=== PATIENT | female | born 1965 | race Two or more races ===

== ENCOUNTER 2023-01-30 13:42 | Emergency (ER) | payer MEDICAID ==
[2023-01-30] MEDS ORDERED: IBUP-1456 PO (19:28)
== END 2023-01-30 15:22 | disposition left against medical advice (07) ==
LOC: ER 13:42
DX: M25.512 Pain in left shoulder (principal); Z53.21 Procedure and treatment not carried out due to patient leaving prior to being seen by health care provider

== ENCOUNTER 2023-01-30 17:27 | Emergency (ER) | payer MEDICAID ==
[~2023-01-30] VITALS: Ht 177.8 cm; Wt 82.2 kg
[2023-01-30 18:28] VITALS: BP 105/86; PULSE 67; RESP 20; TEMP 97.5; O2SAT 97
[2023-01-30] MEDS ORDERED: IBUP-1456 PO (19:28)
[2023-01-30] MEDS ORDERED: KETOROLAC TROMETH 60MG/2ML VIAL IM ONE (19:30)
== END 2023-01-30 19:38 | disposition home or self-care (01) ==
LOC: ER 17:27
DX: S46.912A Strain of unspecified muscle, fascia and tendon at shoulder and upper arm level, left arm, initial encounter (principal); Z79.1 Long term (current) use of non-steroidal anti-inflammatories (NSAID); X58.XXXA Exposure to other specified factors, initial encounter; Y93.89 Activity, other specified; Y92.89 Other specified places as the place of occurrence of the external cause; Y99.8 Other external cause status
CPT/HCPCS: 73030; 96372; 99283; J1885

== ENCOUNTER 2024-10-09 20:33 | Emergency (ER) | payer MEDICAID ==
[~2024-10-09] VITALS: Ht 177.8 cm; Wt 88.6 kg
[~2024-10-09 20:33] MED LIST: IBUP-1456 PO
--- NOTE | 2024-10-09 20:55 | ED.PDOC ---
HPI Comments HPI: Past Medical history: Denies Past Surgical history: Denies Family History: Noncontributory Medications: denies Allergies: NDKA Social History: denies ETOH, denies tobacco use, denies drug use Initial vitals: BP: HR: 65 RR: O2 Sat.: Temp.: HPI: Poor Historian. 59-year-old female presents to emergency department for evaluation of left-sided chest pain radiating to the left upper extremity constant with the associated shortness of breath. Onset of symptoms happened approximately an hour prior to my evaluation. No alleviating or precipitating factors. Patient states that this is unusual for her. Denies any family history of coronary artery disease. Denies any tobacco abuse. REVIEW OF SYSTEMS: CONSTITUTIONAL: Denies acute: fever, diaphoresis, chills, generalized weakness. HEAD: Denies acute: headache, photophobia Eyes: Denies acute: Double vision, vision loss, eye pain, eye discharge. EARS: Denies acute: tinnitus, hearing loss, ear discharge, ear pain, THROAT: Denies acute: sore throat, swelling, difficulty swallowing , pain with swallowing, change in voice. NECK: Denies acute: neck pain, neck swelling, stiff neck. HEART: Denies acute : palpitations, LUNGS: Denies acute: wheezing, cough, hemoptysis ABDOMEN: Denies acute: abdominal pain, Nausea, Vomiting, diarrhea, melena , hematemesis, hematochezia SKIN: Denies acute: rash, redness, lesions, itchiness. EXTREMITIES: Denies acute: calf pain, numbness, tingling, weakness, denies pain in extremity. Denies acute: Low back pain. Neuro: Denies acute: focal neurological deficit, motor or sensory focal neurological deficit, tremors, seizure like activity, confusion, dizziness, change in mental status, loss of bowel or bladder function, cauda equina like symptoms. : Denies acute: dysuria, hematuria, flank pain, increase in urinary frequency. PSYCH: Denies acute: hallucination, suicidal ideation, homicidal ideation. FEMALE: Denies acute: abnormal vaginal bleeding, foul odor, unusual discharge. PHYSICAL EXAM: General: ----wizf-rr-drojjogw----acute distress, awake and alert. Head: normocephalic, atraumatic. Neck: supple, trachea is midline, no swelling. Throat: Normal phonation. Eyes:, no erythema, no purulent discharge, no proptosis, no icterus. Heart: regular rate, regular rhythm, no significant murmur appreciated. Lungs: no apparent respiratory distress, Able to speak in full sentences. No wheezing, no rhonchi, no crackles. No stridors Clear to auscultation bilaterally. Abdomen: non tender to palpation, non distended, soft, no guarding, no rebound, + bowel sounds. Neuro: Awake, Alert, oriented to name, self, situation, follows commands GCS=15. Speech is normal. Skin: no petechia, no purpura, no cyanosis, non-pale, not jaundice. Lower extremities: --no - Pitting edema no deformity, no focal swelling, no calf TTP. Makes eye contact. moves all four extremities. Face: no apparent facial droop. Ambulating in the ED independently. ED COURSE: Chief Complaint: Chest Pain Time Seen by MD: 20:53 Primary Care Provider: UNKNOWN Reviewed Notes: Medications, Allergies Allergies: Coded Allergies: No Known Drug Allergy (Verified Allergy, Unknown, 01/30/23) Home Meds Active Scripts Ibuprofen (Ibuprofen) 800 Mg Tab, 1 TAB PO TID PRN, #30 TAB 0 Refills Prov:ROBBIN CORRALES 01/30/23 Information Source: Patient Mode of Arrival: Ambulatory Was a procedure done? Was a procedure done?: No CP Differential Dx Differential Diagnosis: N/A Differential Diagnosis: Other (Ddx include but not limitied to gastritis, musculoskeletal pain, radiculopathy, atypical chest pain, dissection, aneurysm, ACS, unstable angina, hiatal hernia, GERD, anxiety, costochondritis, PE, pneumothroax, neoplasm, cardiac ischemia, drug abuse, anemia.) X-Ray, Labs, Meds, VS Vital Signs Date Time Temp Pulse Resp B/P (MAP) Pulse Ox O2 Delivery O2 Flow Rate FiO2 10/09/24 23:59 112/76 10/09/24 23:52 66 16 98 Room Air* 0 21 10/09/24 23:52 98.3 66 16 112/76 (88) 98 98.3 10/09/24 23:43 60 10/09/24 22:04 62 10/09/24 20:51 98.4 65 20 113/75 (88) 98 98.4 10/09/24 20:41 65 Lab Test 10/09/24 21:33 10/09/24 20:53 10/09/24 10:03 Range/Units Troponin I High Sensitivity 3 L < 3 L </=34 ng/L White Blood Count 7.1 4.4-10.8 10^3/uL Red Blood Count 4.92 4.0-5.20 10^6/uL Hemoglobin 13.1 12.2-16.2 g/dL Hematocrit 40.3 36.0-46.0 % Mean Corpuscular Volume 81.8 80.0-100.0 fL Mean Corpuscular Hemoglobin 26.7 L 28.0-32.0 pg Mean Corpuscular Hemoglobin Concent 32.7 32.0-36.0 g/dL Red Cell Distribution Width 14.6 H 11.8-14.3 % Platelet Count 272 140-450 10^3/uL Mean Platelet Volume 6.8 L 6.9-10.8 fL Neutrophils (%) (Auto) 53.2 37.0-80.0 % Lymphocytes (%) (Auto) 37.5 10.0-50.0 % Monocytes (%) (Auto) 6.6 0.0-12.0 % Eosinophils (%) (Auto) 2.0 0.0-7.0 % Basophils (%) (Auto) 0.7 0.0-2.0 % Neutrophils # (Auto) 3.8 1.6-8.6 10 ^3/uL Lymphocytes # (Auto) 2.7 0.4-5.4 10 ^3/uL Monocytes # (Auto) 0.5 0-1.3 10 ^3/uL Eosinophils # (Auto) 0.1 0-0.8 10 ^3/uL Basophils # (Auto) 0 0-0.2 10 ^3/uL Nucleated Red Blood Cells 0.0 % Sodium Level 142 136-145 mmol/L Potassium Level 4.1 3.5-5.1 mmol/L Chloride Level 110 H 98-107 mmol/L Carbon Dioxide Level 25 20-31 mmol/L Anion Gap 7 5-15 Blood Urea Nitrogen 16 9-23 mg/dL Creatinine 0.82 0.550-1.02 mg/dL Glomerular Filtration Rate Calc 82 >90 mL/min BUN/Creatinine Ratio 19.5 10.0-20.0 Serum Glucose 90 74-106 mg/dL Lactic Acid Level 0.8 0.4-2.0 mmol/L Calcium Level 9.8 8.7-10.4 mg/dL Total Bilirubin 0.3 0.2-1.0 mg/dL Aspartate Amino Transferase (AST) 18 13-40 U/L Alanine Aminotransferase (ALT) 29 7-40 U/L Alkaline Phosphatase 80 46-116 U/L Total Protein 7.2 5.7-8.2 g/dL Albumin 4.3 3.2-4.8 g/dL Urine Color Colorless Yellow Urine Clarity Clear Clear Urine pH 5.5 5.0-9.0 Urine Specific [place] 1.005 1.001-1.035 Urine Protein Negative Negative Urine Ketones Negative Negative Urine Blood 1+ H Negative /uL Urine Nitrite Negative Negative Urine Bilirubin Negative Negative Urine Urobilinogen Normal Negative mg/dL Urine Leukocyte Esterase 1+ Negative /uL Urine RBC None seen 0 - 4 /hpf Urine Microscopic WBC 1 0-5 /HPF Urine Squamous Epithelial Cells Few <5 /hpf Urine Bacteria None seen None Seen /hpf Urine Glucose Normal Normal mg/dL Current Medications Medications (Trade) Dose Ordered Sig/Buddy Route Start Time Stop Time Status Last Admin Aspirin (Ecotrin Enteric Coated Tablet) 325 mg ONCE ONCE PO 10/09/24 21:00 10/09/24 21:01 DC 10/10/24 00:06 [place] [address] Ph: [phone] DIAGNOSTIC IMAGING Diagnostic Imaging Report : [id number] Signed PATIENT: NESTOR KEY ACCT: [id number] UNIT: [id number] : 1965 LOC: ER ROOM / BED: / AGE / SEX: 59 / F ADM STATUS: REG ER SERVICE 45 ORDERING PHYSICIAN: SHANIA LLANOS DO PROCEDURE(s): CXRP - CHEST PORTABLE REASON: cp/sob ORDER NUMBER(s): [id number], ACCESSION NUMBER(s): [id number] INDICATION: cp/sob TECHNIQUE: Frontal view of the chest. COMPARISON: None FINDINGS: . The heart and mediastinal contours are grossly unremarkable. There is no evidence of pleural disease. The lungs are clear. The bony structures of the chest are intact without fracture. IMPRESSION: 1. No evidence of acute disease. ATED BY: MESERET MERRITT MD DICTATED DATE/TIME: 10/09/242158 SIGNED BY: MESERET MERRITT MD SIGNED DATE/TIME: 10/09/242158 CC: Time of 1ST Reevaluation: 00:00 Reevaluation 1ST: Unchanged Patient Education/Counseling: Diagnosis, Treatment Family Education/Counseling: No Family Present Comments Patient presented with the above HPI. Cardiac-----workup was initiated. patient was found with the above mentioned diagnosis. the following medications were ordered: please refer to order lists of meds and tests obtained by myself Dr. Llanos. Patient ED course and VS have been stabilized. Patient has been reassessed in the ED and remained in a stable condition. Pertinent incidental findings were discussed with the patient and/or family. Patient/family voices understanding and is agreeable with plan. Patient has been observed in the ED adequate length of time to insure improvement/stability. Escalation of care considered: Consideration of escalation to observation or admission Patient was ADMITTED to the medicine team for further evaluation and treatment of their presentation. All the reports of any imaging studies that were ordered by myself were reviewed by myself. Departure 1 Departure Time of Disposition: 20:56 Impression: Primary Impression: Chest pain Disposition: ADMITTED INPATIENT Admit to: [facility] Condition: Guarded Discharged With: Self Critical Care Note Critical Care Time?: No Heart Score Heart Score: Heart Score Response (Comments) Value History Highly Suspicious 2 EKG Normal 0 Age 45-64 1 Risk Factors No known risk factors 0 Troponin Normal limit 0 Total 3 I personally scribed for SHANIA LLANOS DO ([email or web address]) on 10/09/24 at 20:55. Electronically submitted by Cesar Garcia ([email or web address]). SHANIA LLANOS DO Oct 09, 2024 20:55
[2024-10-09 21:08] LABS: Basophils # (auto) 0 10 ^3/uL (0-0.2); Basophils % (auto) 0.7 % (0.0-2.0); Eosinophils # (auto) 0.1 10 ^3/uL (0-0.8); Hematocrit 40.3 % (36.0-46.0); Hemoglobin 13.1 g/dL (12.2-16.2); Lymphocytes # (auto) 2.7 10 ^3/uL (0.4-5.4); Lymphocytes % (auto) 37.5 % (10.0-50.0); Mean Corpuscular Hemoglobin 26.7 pg (28.0-32.0); Mean Corpuscular Hgb Conc. 32.7 g/dL (32.0-36.0); Mean Corpuscular Volume 81.8 fL (80.0-100.0); Monocytes # (auto) 0.5 10 ^3/uL (0-1.3); Monocytes % (auto) 6.6 % (0.0-12.0); Neutrophils # (auto) 3.8 10 ^3/uL (1.6-8.6); Neutrophils % (auto) 53.2 % (37.0-80.0); Platelet Count (auto) 272 10^3/uL (140-450); Red Blood Cells 4.92 10^6/uL (4.0-5.20); Red Cell Distribution Width 14.6 % (11.8-14.3); White Blood Cell 7.1 10^3/uL (4.4-10.8)
[2024-10-09 21:25] LABS: Alanine Aminotransferase 29 U/L (7-40); Albumin 4.3 g/dL (3.2-4.8); Alkaline Phosphatase 80 U/L (46-116); Anion Gap 7 (5-15); Aspartate Aminotransferase 18 U/L (13-40); BUN/Creatinine Ratio 19.5 (10.0-20.0); Blood Urea Nitrogen 16 mg/dL (9-23); Calcium 9.8 mg/dL (8.7-10.4); Carbon Dioxide 25 mmol/L (20-31); Glucose 90 mg/dL (74-106); Potassium 4.1 mmol/L (3.5-5.1); Sodium 142 mmol/L (136-145); Total Protein 7.2 g/dL (5.7-8.2)
[2024-10-09 21:26] LABS: Bilirubin, Total 0.3 mg/dL (0.2-1.0); Chloride 110 mmol/L (98-107)
--- NOTE | 2024-10-09 22:01 | DVH ---
INDICATION: cp/sob TECHNIQUE: Frontal view of the chest. COMPARISON: None FINDINGS: . The heart and mediastinal contours are grossly unremarkable. There is no evidence of pleural disea se. The lungs are clear. The bony structures of the chest are intact without fracture. IMPRESSION: 1. No evidence of acute disease.
[2024-10-09 23:30] LABS: Urine Bacteria None Seen /hpf (None Seen)
[2024-10-09 23:52] VITALS: BP 112/76; PULSE 66; RESP 16; TEMP 98.3; O2SAT 98
[2024-10-09] MEDS: NITROGLYCERIN 0.4 MG SL TAB SL ONE (23:59)
[2024-10-10] MEDS: ASPirin-EC 325mg tab PO ONE (00:06)
[2024-10-10 00:07] LABS: Urine Blood 1+ /uL (Negative); Urine Clarity Clear (Clear); Urine Color Colorless (Yellow); Urine Protein, UAD Negative (Negative); Urine Specific Gravity 1.005 (1.001-1.035); Urine Squamous Epithelial Cell FEW /hpf (<5); Urine Urobilinogen Normal (Negative); Urine WBC 1 /HPF (0-5); Urine pH 5.5 (5.0-9.0)
--- NOTE | 2024-10-10 13:15 | ECG ---
[facility] Test Date: 2024-10-09 Test Time: 22:04:03 Pat Name: NESTOR KEY Department: ER Room: Gender: F Sales And Service Change Leader: DANELLE : 1965 Requested By: RAFI FLOWERS Order Number: [id number] Reading MD: Jd Quezada Measurements Intervals [place] Rate: 62 P: 59 KS: 174 QRS: -9 QRSD: 97 T: 64 QT: 428 QTc: 435 Interpretive Statements Sinus rhythm Baseline wander in lead(s) V6 Electronically Signed On 10-10-2024 13:29:18 PDT by Jd Quezada Please click the below link to view image of tracing.
--- NOTE | 2024-10-10 13:15 | ECG ---
[facility] Test Date: 2024-10-09 Test Time: 20:41:50 Pat Name: NESTOR KEY Department: ER Room: Gender: F Fire Extinguisher Sprinkler Inspector: DANELLE : 1965 Requested By: RAFI FLOWERS Order Number: [id number] Reading MD: Jd Quezada Measurements Intervals [place] Rate: 65 P: 66 DC: 173 QRS: -6 QRSD: 94 T: 66 QT: 396 QTc: 412 Interpretive Statements Sinus rhythm Borderline T abnormalities, anterior leads ST elevation, consider inferior injury Baseline wander in lead(s) II,III,aVL,aVF Electronically Signed On 10-10-2024 13:29:14 PDT by Jd Quezada Please click the below link to view image of tracing.
--- NOTE | 2024-10-10 13:15 | ECG ---
[facility] Test Date: 2024-10-09 Test Time: 23:43:57 Pat Name: NESTOR KEY Department: ER Room: Gender: F Ocean Biologist: DANELLE : 1965 Requested By: RAFI FLOWERS Order Number: [id number] Reading MD: Jd Quezada Measurements Intervals [place] Rate: 60 P: 70 SC: 183 QRS: -45 QRSD: 94 T: 63 QT: 420 QTc: 420 Interpretive Statements Sinus rhythm Left axis deviation Electronically Signed On 10-10-2024 13:29:19 PDT by Jd Quezada Please click the below link to view image of tracing.
== END 2024-10-10 05:30 | disposition left against medical advice (07) ==
LOC: ER 20:33
DX: R07.89 Other chest pain (principal); M79.642 Pain in left hand; R06.02 Shortness of breath
CPT/HCPCS: 36415; 71045; 80053; 81001; 83605; 84484; 85025; 93005